=== PATIENT | male | born 1980 | race African-American/Black ===

== ENCOUNTER 2017-01-20 07:55 | Emergency (ER) | payer MEDICAID ==
[~2017-01-20] VITALS: Ht 188 cm; Wt 84.0 kg
[2017-01-20] MEDS ORDERED: IBUPROFEN 600MG TABLET PO ONE (09:00)
[2017-01-20] MEDS ORDERED: SULFAMETHOXAZOLE/TRIMETHOPRIM 800/160MG TABLET PO ONE (10:30)
[2017-01-20 12:00] VITALS: BP 128/78
== END 2017-01-20 12:12 | disposition home or self-care (01) ==
LOC: ER 08:40
DX: L03.115 Cellulitis of right lower limb (principal); L02.611 Cutaneous abscess of right foot; F17.210 Nicotine dependence, cigarettes, uncomplicated; Z88.0 Allergy status to penicillin
CPT/HCPCS: 10060; 73630; 99284; Z7610